=== PATIENT | female | born 1990 ===

== ENCOUNTER 2024-04-12 01:58 | Emergency (ER) | payer SELFPAY ==
[2024-04-12 02:04] VITALS: BP 142/94; PULSE 66; RESP 18; TEMP 36.4; O2SAT 100
--- NOTE | 2024-04-12 02:16 | PC.NURSE ---
triaged and then in w/c to OB. All cares explained. OB staff luis fernando pt is coming
[2024-04-12 04:16] VITALS: BP 142/94; PULSE 66; RESP 18; TEMP 36.4; O2SAT 100
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
[2024-04-12] MEDS: ACETAMINOPHEN 500 MG TABLET 1000 MG PO (05:04)
--- NOTE | 2024-04-12 05:15 | ED.NURSE ---
This account is the third account made in error for the same patient visit. 0130 ER presentation and ED triage 0216 Patient moved to OB 0400 Patient returned to ED for ER workup 0516 Patient d/cd from ED to home
== END 2024-04-12 05:17 | disposition home or self-care (01) ==
PROVIDERS: Emergency Provider Family Medicine; PCP Family Medicine
DX: S16.1XXA Strain of muscle, fascia and tendon at neck level, initial encounter (principal); V49.9XXA Car occupant (driver) (passenger) injured in unspecified traffic accident, initial encounter; S39.012A Strain of muscle, fascia and tendon of lower back, initial encounter; Z3A.38 38 weeks gestation of pregnancy
CPT/HCPCS: 99283; A9270

== ENCOUNTER 2024-04-12 02:10 | Outpatient (CLI) | payer OTHER, SELFPAY ==
[2024-04-12 02:19] VITALS: PULSE 67; O2SAT 98
[2024-04-12 02:21] VITALS: BP 118/71; PULSE 66; RESP 16; TEMP 36.6
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
== END 2024-04-12 03:50 | disposition still patient (30) ==
LOC: OB OUT 02:14 → OB 02:15 → OB OUT 21:26
PROVIDERS: PCP Family Medicine; Visit Provider Midwife
DX: O26.893 Other specified pregnancy related conditions, third trimester (principal); S39.91XA Unspecified injury of abdomen, initial encounter; V43.92XA Unspecified car occupant injured in collision with other type car in traffic accident, initial encounter; Y92.410 Unspecified street and highway as the place of occurrence of the external cause; Z3A.37 37 weeks gestation of pregnancy
CPT/HCPCS: 59025; 99281; G0463